=== PATIENT | female | born 1985 | race Hispanic/Latino ===

== ENCOUNTER 2024-03-24 05:21 | Inpatient (IN) | payer MEDICAID, OTHER ==
[2024-03-24 05:29] VITALS: BMI 27.0
[2024-03-24] MEDS ORDERED: Carboprost 250 MCG/ML AMP IM PRN (05:30)
[2024-03-24] MEDS ORDERED: Bicitra 30 ML UDCUP PO PRN (05:30)
[2024-03-24] MEDS ORDERED: Ondansetron PF 4 MG/2 ML Vial IVP PRN ×4 (05:30→12:56)
[2024-03-24] MEDS ORDERED: Tranexamic Acid 1,000 MG/10 ML VIAL IVP PRN (05:30)
[2024-03-24] MEDS ORDERED: CEFAZOLIN 2 GM in Sodium Chloride 0.9% 100 ML IVPB SCH (05:30)
[2024-03-24] MEDS ORDERED: Misoprostol 200 MCG TAB PR PRN (05:30)
[2024-03-24] MEDS ORDERED: Diphenoxylate HCl/Atropine Tablet PO PRN (05:30)
[2024-03-24] MEDS ORDERED: hydrALAZINE 20 MG/ML VIAL SLOW IVP PRN ×2 (05:30→12:56)
[2024-03-24] MEDS ORDERED: Famotidine/PF 20 mg/2ml Vial SLOW IVP PRN (05:30)
[2024-03-24] MEDS ORDERED: Methylergonovine 0.2 MG/ML VIAL IM PRN (05:30)
[2024-03-24] MEDS ORDERED: Oxytocin 30 units/NS 500 ML 500 ML IV SCH ×2 (05:30→12:56)
[2024-03-24] MEDS ORDERED: Promethazine HCl 25 MG/ML VIAL IM PRN ×3 (05:30→12:56)
[2024-03-24] MEDS: Lactated Ringer's 1,000 ML IV SCH (05:51)
[2024-03-24 06:12] LABS: Hematocrit 34.8 % (34.9-44.5); Hemoglobin 11.6 g/dL (12.0-15.5); Mean Corpuscular HGB CONC 33.3 g/dL (32.0-36.0); Mean Corpuscular Hemoglobin 26.6 pg (27.0-33.0); Mean Corpuscular Volume 79.8 fL (81.6-98.3); Mean Platelet Volume 13.6 fL (7.4-10.4); Platelet Count 198 10x3/uL (150-450); RBC Distribution Width 14.7 % (11.5-14.5); Red Blood Cell (RBC) Count 4.36 10x6/uL (3.90-5.03); White Blood Cell (WBC) Count 5.8 10x3/uL (3.5-10.5)
[2024-03-24 06:19] LABS: Glucose 110 mg/dL (70-105)
[2024-03-24 06:45] LABS: HBsAg Index 0.24 S/CO (0-0.99); Hep B Surf Ag - L&D Non-Reactive S/CO (NonReactive)
[2024-03-24 06:46] LABS: Syphilis Antibody Nonreactive (Nonreactive); Syphilis Antibody Index 0.03 S/CO (<1.00 Non-Reactive)
[2024-03-24] MEDS ORDERED: Meperidine HCl/PF 25 MG (1 mL) VIAL SLOW IVP PRN (07:06)
[2024-03-24] MEDS ORDERED: Naloxone HCl 0.4 mg/ml Vial IV PRN (07:06)
[2024-03-24] MEDS ORDERED: diphenhydrAMINE 50 MG/ML VIAL IVP PRN (07:06)
[2024-03-24] MEDS ORDERED: Moisturizing Cream (Eucerin) 113 GM JAR TOP PRN (07:06)
[2024-03-24] MEDS ORDERED: Naloxone HCl 0.4 mg/ml Vial IVP PRN ×2 (07:06)
[2024-03-24] MEDS ORDERED: Ketorolac Tromethamine 30 MG (1 mL) VIAL IVP SCH (07:06)
[2024-03-24] MEDS ORDERED: fentaNYL 50 mcg/mL 1 mL Vial SLOW IVP PRN (07:06)
[2024-03-24] MEDS ORDERED: Communication Order-Pharmacy FS SCH (07:15)
[2024-03-24] MEDS ORDERED: Lanolin Ointment 7 GM TUBE TOP PRN (12:56)
[2024-03-24] MEDS ORDERED: Meperidine HCl/PF 25 MG (1 mL) VIAL IM PRN (12:56)
[2024-03-24] MEDS ORDERED: Bisacodyl 10 MG SUPP PR PRN (12:56)
[2024-03-24] MEDS: Dexmedetomidine 200 MCG/2 ML VIAL ONE (13:02)
[2024-03-24] MEDS: Ketorolac Tromethamine 30 MG (1 mL) VIAL ONE (13:02)
[2024-03-24] MEDS: Ondansetron PF 4 MG/2 ML Vial ONE (13:02)
[2024-03-24] MEDS: Morphine PF 10 MG/10 ML VIAL ONE (13:02)
[2024-03-24] MEDS: ePHEDrine Sulfate 50 MG/10 ML VIAL ONE (13:02)
[2024-03-24] MEDS: PHENYLEPHRINE-NS 100 MCG/ML 10 ML SYRINGE ONE (13:03)
[2024-03-24] MEDS: Hepatitis B Vaccine 10 MCG/0.5 ML SYR ONE (13:03)
[2024-03-24] MEDS: Phytonadione Neonatal 1 MG/0.5 ML AMP ONE (13:03)
[2024-03-24] MEDS: Phenylephrine 40 MG/NS 250 ML 250 ML ONE (13:03)
[2024-03-24] MEDS: Erythromycin Base 0.5% Oint 1 GM TUBE ONE (13:03)
[2024-03-24] MEDS: Oxytocin 10 UNITS/ML VIAL ONE (13:03)
[2024-03-24] MEDS: SUCCINYLCHOLINE/SOD CL,ISO/PF 200 MG/10 ML SYRINGE FS ONE (13:03)
[2024-03-24] MEDS: Promethazine HCl 25 MG/ML VIAL ONE (13:04)
[2024-03-24] MEDS: Ketorolac Tromethamine 30 MG (1 mL) VIAL IVP SCH (14:16)
[2024-03-24] MEDS ORDERED: Ketorolac Tromethamine 30 MG (1 mL) VIAL IVP PRN (14:35)
[2024-03-24] MEDS: Ferrous Sulfate 325 MG TAB PO SCH ×2 (15:37→21:20)
[2024-03-24] MEDS: Docusate 100 MG CAP PO SCH ×2 (15:37→20:05)
[2024-03-24] MEDS: Prenatal Vitamin 1 TAB PO SCH (15:37)
[2024-03-24] MEDS: Boostrix 0.5 ML (Tdap) VIAL (>/=7 yrs of age) IM ONE (15:37)
[2024-03-24] MEDS: Simethicone Chewable 80 MG TAB PO PRN (20:05)
[2024-03-25 04:19] LABS: Hematocrit 30.5 % (34.9-44.5); Hemoglobin 9.7 g/dL (12.0-15.5); Mean Corpuscular HGB CONC 31.8 g/dL (32.0-36.0); Mean Corpuscular Hemoglobin 25.7 pg (27.0-33.0); Mean Corpuscular Volume 80.7 fL (81.6-98.3); Mean Platelet Volume 12.9 fL (7.4-10.4); Platelet Count 157 10x3/uL (150-450); RBC Distribution Width 14.8 % (11.5-14.5); Red Blood Cell (RBC) Count 3.78 10x6/uL (3.90-5.03); White Blood Cell (WBC) Count 7.7 10x3/uL (3.5-10.5)
[2024-03-25] MEDS: diphenhydrAMINE 25 MG CAP PO PRN (06:05)
[2024-03-25] MEDS: Prenatal Vitamin 1 TAB PO SCH (08:14)
[2024-03-25] MEDS: Ibuprofen 800 MG TAB PO SCH (13:51)
[2024-03-25] MEDS: HYDROcodone/Acetaminophen 5/325 mg Tablet PO PRN (17:31)
[2024-03-25] MEDS: Bupivacaine PF 0.5% 30 ML VIAL ONE (23:44)
[2024-03-26] MEDS: HYDROcodone/Acetaminophen 5/325 mg Tablet PO PRN (13:36)
[2024-03-27 08:01] VITALS: BP 108/57; TEMP 98.1
== END 2024-03-27 11:05 | disposition home or self-care (01) | DRG 788 ==
LOC: CSHLD 05:21 → CSHPP 10:51
PROVIDERS: ADMIT Family Medicine; ATTEND Family Medicine
PROC: 10D00Z1 Extraction of Products of Conception, Low, Open Approach (ICD-10-PCS; principal; 2024-03-24)
DX: O34.211 Maternal care for low transverse scar from previous cesarean delivery (principal); Z3A.39 39 weeks gestation of pregnancy; Z37.0 Single live birth; O24.420 Gestational diabetes mellitus in childbirth, diet controlled
CPT/HCPCS: 36415; 51702; 82947; 85027; 86780; 86850; 86900; 86901; 87340; C1889; J0665; J1885; J2274; J2405; J2550; J2590; J7120